=== PATIENT | female | born 1960 | race Asian ===

== ENCOUNTER 2017-12-13 09:43 | Emergency (ER) | payer MEDICAID, OTHER ==
[~2017-12-13] VITALS: Ht 162.6 cm; Wt 63.5 kg
[2017-12-13 09:43] VITALS: BP 153/83
[2017-12-13] MEDS ORDERED: IBUPROFEN 600 MG TABLET PO ONE ×2 (10:30→10:43)
--- NOTE | 2017-12-13 11:06 | NUR ---
Patient discharged to home in stable condition. Written and verbal after care instructions given. Patient verbalizes understanding of instruction.
== END 2017-12-13 11:08 | disposition home or self-care (01) ==
LOC: ER 09:45
DX: S20.211A Contusion of right front wall of thorax, initial encounter (principal); Z98.890 Other specified postprocedural states; W18.39XA Other fall on same level, initial encounter; Y93.02 Activity, running; Y92.89 Other specified places as the place of occurrence of the external cause; Y99.8 Other external cause status
CPT/HCPCS: 71100; 99284; A4606; Z7610

== ENCOUNTER 2022-04-22 11:05 | Emergency (ER) | payer OTHER ==
[~2022-04-22] VITALS: Ht 165.1 cm; Wt 72.6 kg
[2022-04-22] MEDS ORDERED: IBUP-1955 PO (12:58)
[2022-04-22] MEDS ORDERED: KETOROLAC TROMETHAMINE INJ 60 MG/2 ML VIAL IM ONE (13:00)
[2022-04-22] MEDS ORDERED: KETOROLAC TROMETHAMINE INJ 30 MG/ML VIAL ONE (13:03)
[2022-04-22 13:31] VITALS: BP 154/85
--- NOTE | 2022-04-22 13:32 | NUR ---
Patient discharged to home in stable condition on crutches. Written and verbal after care instructions given. Patient verbalizes understanding of instruction.
== END 2022-04-22 13:32 | disposition home or self-care (01) ==
LOC: ER 11:11
DX: M25.561 Pain in right knee (principal)
CPT/HCPCS: 99284; 96372; 73610; 73564; J1885

== ENCOUNTER 2022-05-03 15:54 | Inpatient (IN) | payer OTHER ==
[~2022-05-03] VITALS: Ht 162.6 cm; Wt 66.2 kg
[~2022-05-03 15:54] MED LIST: IBUP-1955 PO
--- NOTE | 2022-05-03 16:21 | NUR ---
ALOC, THE PATIENT'S SISTER - ON THE PHONE FROM [place] TOLD THE PATIENT TO CALL 911. PER ORNAMENTAL METAL WORKER REPORT; THE PATIENT'S SISTER TOLD THEM - SHE WAS CONCERN ABOUT HER SISTER'S ALOC - UNKNOWN LAST KNOWM WELL BS - 70
--- NOTE | 2022-05-03 16:22 | NUR ---
NIHSS SCORE - 1 FOLLOW COMMAND NO DYSMETRIA NO DYSARTHIA NO NEURO FOCAL DEFICIT. NO WEAKNESS PEERL ALERT AND ORIENTED X 2; SHE DOES NOT KNOW THE DATE AND WHY SHE CAME TO THE ER TODAY THE PATIENT DENIES PAIN OR SOB
--- NOTE | 2022-05-03 16:25 | NUR ---
BLOOD DRAWN AND URINE SAMPLE SENT TO LAB
[2022-05-03 16:27] LABS: BASOPHILS % (AUTO) 0.3 % (0.0-2.0); EOSINOPHILS % (AUTO) 0.4 % (0.0-6.0); HEMATOCRIT 47 % (33-45); HEMOGLOBIN 15.4 g/dL (11.5-14.8); LYMPHOCYTES # (AUTO) 1.2 K/uL (0.8-4.8); LYMPHOCYTES % (AUTO) 14.4 % (20.0-44.0); MEAN CORPUSCULAR HGB CONC 33 g/dl (31.0-36.0); MEAN CORPUSCULAR VOLUME 89 fL (82-100); MONOCYTES # (AUTO) 0.4 K/uL (0.1-1.30); MONOCYTES % (AUTO) 5.2 % (2.0-12.0); NEUTROPHILS # (AUTO) 6.5 K/uL (1.8-8.9); NEUTROPHILS % (AUTO) 79.7 % (43.0-81.0); PLATELET COUNT (AUTO) 252 K/uL (150-450); RED BLOOD CELL COUNT(AUTO) 5.25 MIL/uL (4.0-5.2); WHITE BLOOD COUNT (AUTO) 8.2 K/uL (4.3-11.0)
--- NOTE | 2022-05-03 16:42 | NUR ---
PATIENT TAKEN TO CT VIA JANELL
[2022-05-03 16:50] LABS: CALCIUM, SERUM 9.2 mg/dL (8.5-10.1); CARBON DIOXIDE 20 mmol/L (21-32); CHLORIDE 108 mmol/L (98-107); CREATININE 0.8 mg/dL (0.6-1.3); GLUCOSE 117 mg/dL (74-106); POTASSIUM 3.3 mmol/L (3.5-5.1); SODIUM SERUM 142 mmol/L (136-145); UREA NITROGEN, BLOOD 15 mg/dL (7-18)
[2022-05-03 16:56] LABS: THYROID STIMULATING HORMONE 1.128 uIU/mL (0.358-3.74)
[2022-05-03 17:00] LABS: ALANINE AMINOTRANSFERASE 27 U/L (12-78); ALBUMIN 3.9 g/dL (3.4-5.0); ALKALINE PHOSPHATASE 92 U/L (46-116); ASPARTATE AMINOTRANSFERASE 16 U/L (15-37); BILIRUBIN,DIRECT 0.1 mg/dL (0.0-0.2); BILIRUBIN,TOTAL 0.5 mg/dL (0.2-1.0)
[2022-05-03 17:16] LABS: ACETAMINOPHEN < 10 ug/ml (10-30); ALCOHOL, BLOOD < 3 mg/dL (0-0)
[2022-05-03] MEDS ORDERED: POTASSIUM CHLORIDE 20 MEQ TAB.PRT.SR PO ONE (17:30)
[2022-05-03 17:51] LABS: BILIRUBIN,URINE NEGATIVE (NEGATIVE); LEUKOCYTE ESTERASE ,URINE NEGATIVE (NEGATIVE); NITRITE, URINE NEGATIVE (NEGATIVE); PH,URINE 5.5 (5.0-8.0); PROTEIN,URINE NEGATIVE (NEGATIVE); UGLUCOSE NEGATIVE (NEGATIVE); UROBILINOGEN,URINE 0.2 EU/dL (0.2)
[2022-05-03 18:29] LABS: COLOR,URINE OTHER (YELLOW)
[2022-05-03 18:30] LABS: BACTERIA,URINE Few /HPF (None Seen); RBC,URINE NONE SEEN /HPF (0-2); SQUAMOUS EPITHELIAL CELL,UR Few /HPF (None Seen); WBC,URINE NONE SEEN /HPF (0-3)
[2022-05-03] MEDS ORDERED: IOHEXOL-350 100 ML VIAL IV ONE (19:44)
[2022-05-03] MEDS ORDERED: CT SWABBABLE VALVE TRANS SET 1 EA INFUS.SET MC ONE (19:44)
[2022-05-03] MEDS ORDERED: IV NS 0.9% 250 ML IV ONE (19:44)
--- NOTE | 2022-05-03 19:59 | NUR ---
PATIENT TAKEN TO CT FOR CTA VIA KASHMIRRGABBY
--- NOTE | 2022-05-03 21:03 | NUR ---
SWAB FOR COVID19 SENT TO LAB
--- NOTE | 2022-05-03 21:06 | NUR ---
[facility] 325-1
--- NOTE | 2022-05-03 22:10 | NUR ---
REPORT GIVEN TO VANESA LOZANO ROOM 325-1 FOR WARREN
--- NOTE | 2022-05-03 22:29 | NUR ---
CONTACTED DR COLÓN FOR ADMISSION ORDER.
--- NOTE | 2022-05-03 22:29 | NUR ---
pt transported via acls protocol
[2022-05-03 22:30] VITALS: BP 161/89
--- NOTE | 2022-05-03 22:30 | NUR ---
CLINICAL STUDIES SPECIALIST ADMITTING NOTES PT ARRIVED TO UNIT VIA GURNEY BY ER STAFF. ABLE TO WALK TO BED. A/O X3, ORIENTED TO PERSON, PLACE, TIME, ABLE TO ANSWER ADMISSION QUESTIONS AND MAKE NEEDS KNOWN. ORIENTED TO UNIT AND HOW TO USE CALL LIGHT. STABLE ON RA WITH NO S/S SOB OR RESPIRATORY DISTRESS. DENIES PAIN AT THIS TIME. PT STATES NOT REMEMBERING ANYTHING AFTER BREAKFAST TILL ARRIVING IN ER. ABLE TO REMEMBER EVERYTHING SINCE THEN AND ARRIVING IN OUR UNIT. EYES PERRLA. BREATH SOUNDS CLEAR. CARDIAC SOUNDS WNL. BOWEL SOUND ACTIVE. PLACED ON TRAFFIC CONTROL OPERATOR READING SR, 66 HR. NIHSS STROKE SCALE AND NURSING SWALLOW SCREEN PERFORMED. PT PASSED BOTH SCREENINGS (NIHSS SCORE AT 0) AND ALLOWED BY MD TO CONTINUE PO MEDS AND CARDIAC DIET ORDERED. PROVIDED PRESCRIBED MEDS AND REQUESTED WATER/SNACKS. PT ABLE TO AMBULATE WITH ASSISTANCE TO TOILET TO VOID. SKIN ASSESSED, SOME ISSUES NOTED AND DOCUMENTED IN CHART: R KNEE ABRASION. SAFETY MEASURES PUT IN PLACE: BED LOCKED AND IN LOWEST POSITION, SIDE RAILS UP X3, HOB SEMI-FOWLERS, BED ALARM ON, CALL LIGHT AND TRAY TABLE IN PLACE. WILL CONTINUE TO MONITOR AND ASSIST.
--- NOTE | 2022-05-03 22:34 | NUR ---
PATIENT TRANSFERRED TO [facility] VIA ACLS
[2022-05-03] MEDS ORDERED: ACETAMINOPHEN 325 MG TABLET PO PRN (23:30)
[2022-05-03] MEDS ORDERED: ZOLPIDEM TARTRATE 5 MG TABLET PO PRN (23:30)
[2022-05-03] MEDS ORDERED: Z GUARD REMEDY 4 OZ OINT TP PRN (23:30)
[2022-05-03] MEDS ORDERED: MAGNESIUM HYDROXIDE 30 ML UDC PO PRN (23:30)
[2022-05-03] MEDS ORDERED: ENOXAPARIN SODIUM 40 MG/0.4 ML DISP.SYRIN SQ SCH (23:30)
[2022-05-03] MEDS ORDERED: MAG HYDROX/AL HYDROX/SIMETH 30 ML UDC PO PRN (23:30)
[2022-05-03] MEDS ORDERED: ONDANSETRON HCL/PF 4 MG/2 ML VIAL IVP PRN (23:30)
[2022-05-04] MEDS: ASPIRIN 81 MG TAB.CHEW PO SCH ×2 (00:18→08:41)
[2022-05-04 04:00] VITALS: BP 152/84
[2022-05-04 04:21] VITALS: BP 119/84
--- NOTE | 2022-05-04 04:25 | NUR ---
RN NOTE PT C/O OF CHEST PAIN. PT DESCRIBED PAIN MORE SUPERFICIAL AND TOWARDS LEFT BREAST BONE. PT STATES IT IS CHRONIC AND STARTED HAPPENING WHEN SHE FELL ON HER LEFT SIDE MANY YEARS AGO. VITAL SIGNS CHECKED: 119/84 BP, 63 HR, 97% O2, 18 RR, 98.4 F TEMP. TELE MONITOR SHOWS SR, 75 HR. WILL CONTINUE TO MONITOR.
[2022-05-04 07:13] LABS: BASOPHILS % (AUTO) 0.4 % (0.0-2.0); EOSINOPHILS % (AUTO) 0.6 % (0.0-6.0); HEMATOCRIT 45 % (33-45); HEMOGLOBIN 14.8 g/dL (11.5-14.8); LYMPHOCYTES # (AUTO) 1.5 K/uL (0.8-4.8); LYMPHOCYTES % (AUTO) 19.1 % (20.0-44.0); MEAN CORPUSCULAR HGB CONC 33 g/dl (31.0-36.0); MEAN CORPUSCULAR VOLUME 89 fL (82-100); MONOCYTES # (AUTO) 0.5 K/uL (0.1-1.30); NEUTROPHILS # (AUTO) 5.7 K/uL (1.8-8.9); NEUTROPHILS % (AUTO) 72.9 % (43.0-81.0); PLATELET COUNT (AUTO) 275 K/uL (150-450); RED BLOOD CELL COUNT(AUTO) 5.05 MIL/uL (4.0-5.2); WHITE BLOOD COUNT (AUTO) 7.9 K/uL (4.3-11.0)
[2022-05-04 07:16] LABS: CREATININE 0.6 mg/dL (0.6-1.3); MAGNESIUM 2.5 mg/dL (1.8-2.4); PHOSPHORUS 3.8 mg/dL (2.5-4.9); POTASSIUM 3.3 mmol/L (3.5-5.1)
--- NOTE | 2022-05-04 07:18 | NUR ---
CULINARY MANAGER CLOSING NOTES PT RESTING IN BED AT THIS TIME. A/O X3, ABLE TO MAKE NEEDS KNOWN. STABLE ON RA WITH NO S/S SOB OR RESPIRATORY DISTRESS. DENIES PAIN AT THIS TIME. ON TELE MONITOR READING SR, 70 HR. PT ABLE TO AMBULATE WITH ASSISTANCE TO TOILET TO VOID 4X LAST NIGHT. ALL CARE PROVIDED AND MEDS TOLERATED WELL. ALL CARE PROVIDED AND MEDS TOLERATED WELL. SAFETY MEASURES MAINTAINED: BED LOCKED AND IN LOWEST POSITION, SIDE RAILS UP X3, HOB SEMI-FOWLERS, BED ALARM ON, CALL LIGHT AND TRAY TABLE IN PLACE. WILL ENDORSE WARREN TO DAY SHIFT NURSE.
[2022-05-04 07:25] LABS: THYROID STIMULATING HORMONE 3.172 uIU/mL (0.358-3.74)
--- NOTE | 2022-05-04 07:25 | NUR ---
HYDROELECTRIC PLANT STRUCTURAL ENGINEER OPENING NOTES RECEIVED PATIENT IN LYING IN BED, A/OX4, ABLE TO MAKE NEEDS KNOWN. OM RA WITHOUT ANY SIGNS OR SYMPTOMS OF ANY RESPIRATORY DISTRESS, DENIES PAIN NOR DISCOMFORT AT THIS TIME. ON TELE MONITOR READING SR 74 HR. WILL MONITOR PATIENT FOR ANY NEUROLOGICAL CHANGES. SAFETY MEASURES IN PLACE: BED LOCKED AND IN LOWEST POSITION, SIDE RAILS UP X2, BED ALARM ON, CALL LIGHT AND TRAY TABLE WITHIN EASY REACH. WILL CONTINUE PLAN OF CARE.
[2022-05-04] MEDS ORDERED: PANTOPRAZOLE 40 MG TABLET.DR PO SCH (07:30)
[2022-05-04 08:00] VITALS: BP 139/72
[2022-05-04] MEDS ORDERED: POTASSIUM CHLORIDE 20 MEQ TAB.PRT.SR PO SCH (10:00)
[2022-05-04 12:00] VITALS: BP 125/70
--- NOTE | 2022-05-04 13:45 | NUR ---
RN NOTES - SEEN BY JOSEFA AVILA OF DR MCDANIELS, PATIENT PASSED OT EVAL, PATIENT COMPLAINING OF R KNEE PAIN, DR CUNNINGHAM ORDERED XRAY OF R KNEE, CARRIED OUT.
--- NOTE | 2022-05-04 14:47 | NUR ---
RN NOTES - PATIENT REFUSED LABS AND WANTS TO GO HOME, MD IS AWARE. AWAITING RESPONSE.
--- NOTE | 2022-05-04 15:45 | NUR ---
AMA NOTES PT IS AOX4, SEEN BY DR CUNNINGHAM VERBALIZED THAT SHE WANTS TO LEAVE AGAINST [facility] BECAUSE SHE IS "WELL". EXPLAINED RISKS AND CONSEQUENCES OF LEAVING THE HOSPITAL, PATIENT VERBALIZED UNDERSTANDING. MENTIONED SHE WILL JUST FOLLOW UP WITH PCP, INSISTED OF LEAVING AMA. MD MADE AWARE, PT SIGNED AMA FORM AND BELONGINGS LIST. IV ACCESS REMOVED WITHOUT ANY ACTIVE BLEEDING, PRESSURE GAUZE APPLIED. NAME BAND REMOVED. PT LEFT UNIT VIA WHEELCHAIR ACCOMPANIED BY [employer] TO THE LOBBY. WILL BE PICKED UP BY SON.
--- NOTE | 2022-05-04 15:58 | NUR ---
RN NOTES - INCIDENT REPORT INITIATED
== END 2022-05-04 15:15 | disposition left against medical advice (07) | DRG 47 ==
LOC: ER 15:56 → TELE 21:45
PROVIDERS: ADMIT Student in an Organized Health Care Education/Training Program; ATTEND Internal Medicine
DX: G45.9 Transient cerebral ischemic attack, unspecified (principal); G93.40 Encephalopathy, unspecified; G45.4 Transient global amnesia; F29 Unspecified psychosis not due to a substance or known physiological condition; Z20.822 Contact with and (suspected) exposure to COVID-19; Z98.890 Other specified postprocedural states; E87.6 Hypokalemia; Z86.59 Personal history of other mental and behavioral disorders; S80.211A Abrasion, right knee, initial encounter; W19.XXXA Unspecified fall, initial encounter; Y92.9 Unspecified place or not applicable; X50.1XXA Overexertion from prolonged static or awkward postures, initial encounter
CPT/HCPCS: 36415; 70450-TC; 70496-TC; 70498-TC; 70551-TC; 80048-TC; 80061-TC; 80076-TC; 81001; 83735-TC; 84100-TC; 84443-TC; 85025-TC; 87081-TC; 92526; 92611-TC; 93307-TC; 97116-TC; 97530-TC; G0378; G0480; J1650; J7050; Q9967